=== PATIENT | female | born 1960 | race Caucasian/White ===

== ENCOUNTER 2021-11-05 19:22 | Inpatient (IN) | payer MEDICARE ==
[~2021-11-05] VITALS: Ht 157.5 cm; Wt 65.8 kg
[2021-11-05 20:04] LABS: BASOPHILS % (AUTO) 0.3 % (0.0-5.0); HEMATOCRIT 36.8 % (36-48); LYMPHOCYTES % (AUTO) 18.2 % (21.0-51.0); MEAN CORPUSCULAR HEMOGLOBIN 26.6 pg (27.0-33.0); MEAN CORPUSCULAR HGB CONC 32.6 g/dL (32.0-36.0); MEAN CORPUSCULAR VOLUME 81.6 fL (79-99); MONOCYTES % (AUTO) 9.8 % (3.0-13.0); NEUTROPHILS % (AUTO) 70.1 % (40.0-77.0); PLATELET COUNT (AUTO) 192 K/uL (130-400); RED BLOOD CELL COUNT(AUTO) 4.51 MIL/uL (4.00-5.50); RED CELL DISTRIBUTION WIDTH 15.7 % (11.0-15.5)
[2021-11-05 20:17] LABS: INR 1.06 (0.85-1.15); PROTHROMBIN TIME 11.5 SEC (9.6-11.6)
[2021-11-05 20:19] LABS: PARTIAL THROMBOPLASTIN TIME 29.5 SEC (26.3-35.5)
[2021-11-05 20:20] LABS: CREATININE 2.2 mg/dL (0.5-1.5); POTASSIUM 3.3 mmol/L (3.5-5.1)
[2021-11-05 20:29] LABS: ALBUMIN 3.7 g/dL (3.5-5.0); BILIRUBIN,TOTAL 0.6 mg/dL (0.2-1.0); MAGNESIUM 1.4 mg/dL (1.80-2.40); TOTAL PROTEIN, SERUM 7.8 g/dL (6.0-8.3)
[2021-11-05] MEDS ORDERED: CEFTRIAXONE 1G VIAL IVP ONE (21:00)
[2021-11-05] MEDS ORDERED: ONDANSETRON 4MG INJ IVP ONE (21:00)
[2021-11-05] MEDS ORDERED: POTASSIUM BICARB/CIT AC 25 MEQ TABLET.EFF PO ONE (21:00)
[2021-11-05] MEDS ORDERED: ACETAMINOPHEN 500 MG TABLET PO ONE (21:00)
[2021-11-05 21:11] LABS: APPEARANCE,URINE Turbid (CLEAR); BILIRUBIN,URINE Negative (NEGATIVE); COLOR,URINE Yellow (YELLOW); GLUCOSE, URINE (UA) Negative (NEGATIVE); KETONES,URINE Trace mg/dL (NEGATIVE); LEUKOCYTE ESTERASE ,URINE Large (NEGATIVE); NITRATE,URINE Negative (NEGATIVE); OCCULT BLOOD,URINE Large (NEGATIVE); PROTEIN,URINE 300 mg/dL (NEGATIVE)
[2021-11-05 21:21] LABS: BACTERIA,URINE Many /HPF (None Seen); SQUAMOUS EPITHELIAL CELL,UR Rare /HPF (0-2); WBC,URINE 26-50 /HPF (0-1)
[2021-11-05 21:22] LABS: MUCUS,URINE None Seen LPF (None Seen)
[2021-11-05] MEDS ORDERED: METRONIDAZOLE 500 MG TABLET PO SCH (21:30)
[2021-11-05] MEDS ORDERED: ONDANSETRON 4MG INJ IVP PRN (22:00)
[2021-11-05] MEDS ORDERED: ACETAMINOPHEN 325 MG TAB PO PRN (22:00)
[2021-11-05] MEDS ORDERED: POTASSIUM CHLORIDE 10MEQ/100ML 100 ML IV PRN (22:00)
[2021-11-05] MEDS ORDERED: LIDOCAINE HCL-MPF 1% 2ML VIAL IV PRN (22:00)
[2021-11-05] MEDS: METRONIDAZOLE 500MG/100ML BAG 100 ML IVPB SCH (22:00)
[2021-11-05] MEDS ORDERED: MAGNESIUM 2GM PREMIX 50ML 50 ML IV PRN (22:00)
[2021-11-05] MEDS ORDERED: POTASSIUM CHLORIDE 10% ELIXIR 20 MEQ/15 ML UDCUP PO PRN (22:00)
[2021-11-05] MEDS ORDERED: PRED10TA3 PO (22:14)
[2021-11-05] MEDS ORDERED: SIMV-43 PO (22:14)
[2021-11-05] MEDS ORDERED: MELA10TA7 PO (22:14)
[2021-11-05] MEDS ORDERED: DULOXETINE DR PO (22:14)
[2021-11-05] MEDS ORDERED: [UNRECOGNIZED DRUG - CODE] PO (22:14)
[2021-11-05] MEDS ORDERED: TACR1TAB PO (22:14)
[2021-11-05] MEDS ORDERED: APIX2.5T PO (22:14)
[2021-11-05] MEDS ORDERED: MYCO360T3 PO (22:14)
[2021-11-05] MEDS ORDERED: TIZA-211 PO (22:14)
[2021-11-05] MEDS: ZOSYN 3.375GM +NS 50ML IV SCH (22:34)
[2021-11-06 00:10] VITALS: BP 145/60
[2021-11-06] MEDS ORDERED: TACROLIMUS 3 MG PO SCH (01:30)
[2021-11-06] MEDS: KCL 20 MEQ ERTAB PO PRN ×2 (01:54→03:38)
[2021-11-06 04:13] VITALS: BP 90/35
[2021-11-06] MEDS: METRONIDAZOLE 500MG/100ML BAG 100 ML IVPB SCH ×3 (05:00→20:52)
[2021-11-06 06:27] LABS: MAGNESIUM 2.9 mg/dL (1.80-2.40); POTASSIUM 4.7 mmol/L (3.5-5.1)
[2021-11-06 08:00] VITALS: BP 81/36
[2021-11-06] MEDS: FAMOTIDINE 20MG VIAL IV SCH (08:58)
[2021-11-06] MEDS: DULOXETINE HCL 30 MG CAP PO SCH (08:59)
[2021-11-06] MEDS: PREDNISONE 10 MG TABLET PO SCH (08:59)
[2021-11-06] MEDS ORDERED: ENOXAPARIN SODIUM 30 MG/0.3 ML SQ SCH (09:00)
[2021-11-06] MEDS ORDERED: APIXABAN 2.5 MG TABLET PO SCH (09:00)
[2021-11-06 09:52] LABS: ALBUMIN 3.2 g/dL (3.5-5.0); BILIRUBIN,TOTAL 0.4 mg/dL (0.2-1.0); CREATININE 2.8 mg/dL (0.5-1.5); TOTAL PROTEIN, SERUM 7.1 g/dL (6.0-8.3)
[2021-11-06] MEDS: MYCOPHENOLATE SODIUM 180 MG TABLET.DR PO SCH ×2 (10:02→20:11)
[2021-11-06] MEDS: ZOSYN 3.375GM +NS 50ML IV SCH ×2 (10:02→21:51)
[2021-11-06] MEDS: LACTATED RINGERS 1000ML 1,000 ML IV SCH ×2 (10:56→21:52)
[2021-11-06 12:00] VITALS: BP 108/52
[2021-11-06 14:26] LABS: CHLORIDE,URINE RANDOM 61 mmol/L (110-250); CREATININE,URINE RANDOM 299 mg/dL (30-135); POTASSIUM,URINE RANDOM 23 mmol/L (25-125); SODIUM,URINE RANDOM 67 mmol/l (40-220)
[2021-11-06 15:25] LABS: APPEARANCE,URINE Cloudy (CLEAR); BILIRUBIN,URINE Negative (NEGATIVE); COLOR,URINE Yellow (YELLOW); GLUCOSE, URINE (UA) Negative (NEGATIVE); KETONES,URINE Trace mg/dL (NEGATIVE); LEUKOCYTE ESTERASE ,URINE Large (NEGATIVE); NITRATE,URINE Negative (NEGATIVE); OCCULT BLOOD,URINE Moderate (NEGATIVE); PROTEIN,URINE POS 1+ mg/dL (NEGATIVE); UROBILINOGEN,URINE 0.2 mg/dL (0.2-1.0)
[2021-11-06 15:35] LABS: BACTERIA,URINE Few /HPF (None Seen); MUCUS,URINE Rare LPF (None Seen); SQUAMOUS EPITHELIAL CELL,UR Few /HPF (0-2)
[2021-11-06 16:00] VITALS: BP 149/74
[2021-11-06 20:00] VITALS: BP 152/67
[2021-11-06] MEDS: SIMVASTATIN 20 MG TABLET PO SCH (20:11)
[2021-11-07] VITALS: BP 128/69
[2021-11-07 04:00] VITALS: BP 138/57
[2021-11-07 05:37] LABS: HEMATOCRIT 31.1 % (36-48); MEAN CORPUSCULAR HEMOGLOBIN 25.5 pg (27.0-33.0); MEAN CORPUSCULAR HGB CONC 30.9 g/dL (32.0-36.0); MEAN CORPUSCULAR VOLUME 82.7 fL (79-99); RED BLOOD CELL COUNT(AUTO) 3.76 MIL/uL (4.00-5.50); RED CELL DISTRIBUTION WIDTH 15.5 % (11.0-15.5); WHITE BLOOD COUNT (AUTO) 6.4 K/uL (4.8-10.8)
[2021-11-07 06:03] LABS: MAGNESIUM 2.1 mg/dL (1.80-2.40); PHOSPHORUS 2.8 mg/dL (2.5-4.9); THYROID STIMULATING HORMONE 0.79 uIU/mL (0.36-3.74); URIC ACID 7.6 mg/dL (2.6-7.2)
[2021-11-07] MEDS: METRONIDAZOLE 500MG/100ML BAG 100 ML IVPB SCH ×3 (06:25→22:37)
[2021-11-07 07:11] LABS: ALBUMIN 2.9 g/dL (3.5-5.0); BILIRUBIN,TOTAL 0.4 mg/dL (0.2-1.0); CREATININE 2.5 mg/dL (0.5-1.5); TOTAL PROTEIN, SERUM 6.3 g/dL (6.0-8.3)
[2021-11-07 08:00] VITALS: BP 124/57
[2021-11-07] MEDS: DULOXETINE HCL 30 MG CAP PO SCH (09:26)
[2021-11-07] MEDS: Vitamin B Complex/Vit C/Folic Acid PO SCH (09:26)
[2021-11-07] MEDS: FAMOTIDINE 20MG VIAL IV SCH (09:26)
[2021-11-07] MEDS: PREDNISONE 10 MG TABLET PO SCH (09:26)
[2021-11-07] MEDS: MYCOPHENOLATE SODIUM 180 MG TABLET.DR PO SCH ×2 (09:27→20:06)
[2021-11-07] MEDS: ZOSYN 3.375GM +NS 50ML IV SCH (10:35)
[2021-11-07 12:00] VITALS: BP 138/66
[2021-11-07 16:00] VITALS: BP 134/60
[2021-11-07 20:00] VITALS: BP 154/53
[2021-11-07] MEDS: SIMVASTATIN 20 MG TABLET PO SCH (20:07)
[2021-11-07] MEDS: CEPHALEXIN 500 MG CAPSULE PO SCH (20:07)
[2021-11-07] MEDS: GUAIFENESIN-DM 200/20 MG 10 ML PO PRN (20:07)
[2021-11-08] VITALS: BP 157/47
[2021-11-08] MEDS: LACTATED RINGERS 1000ML 1,000 ML IV SCH (02:42)
[2021-11-08 04:00] VITALS: BP 152/72
[2021-11-08] MEDS: METRONIDAZOLE 500MG/100ML BAG 100 ML IVPB SCH ×2 (06:03→14:21)
[2021-11-08 08:00] VITALS: BP 108/41
[2021-11-08] MEDS: GUAIFENESIN-DM 200/20 MG 10 ML PO PRN (11:03)
[2021-11-08] MEDS: MYCOPHENOLATE SODIUM 180 MG TABLET.DR PO SCH (11:04)
[2021-11-08] MEDS: DULOXETINE HCL 30 MG CAP PO SCH (11:05)
[2021-11-08] MEDS: Vitamin B Complex/Vit C/Folic Acid PO SCH (11:05)
[2021-11-08] MEDS: PREDNISONE 10 MG TABLET PO SCH (11:06)
[2021-11-08] MEDS: FAMOTIDINE 20MG VIAL IV SCH (11:07)
[2021-11-08] MEDS: CEPHALEXIN 500 MG CAPSULE PO SCH (11:07)
[2021-11-08 13:02] VITALS: BP 148/66
[2021-11-08] MEDS ORDERED: CEPH250C2 PO (15:04)
[2021-11-08] MEDS ORDERED: METR-172 PO (15:04)
[2021-11-08 16:00] VITALS: BP 108/63
== END 2021-11-08 16:40 | disposition home or self-care (01) | DRG 698 ==
LOC: EDH 19:22 → EDHIP 21:46 → 3CH 23:20
PROVIDERS: ADMIT Internal Medicine; ATTEND Internal Medicine
DX: T86.19 Other complication of kidney transplant (principal); A41.9 Sepsis, unspecified organism; E87.1 Hypo-osmolality and hyponatremia; D84.9 Immunodeficiency, unspecified; N13.6 Pyonephrosis; N17.9 Acute kidney failure, unspecified; R65.10 Systemic inflammatory response syndrome (SIRS) of non-infectious origin without acute organ dysfunction; K52.9 Noninfective gastroenteritis and colitis, unspecified; T86.13 Kidney transplant infection; E86.0 Dehydration; K80.20 Calculus of gallbladder without cholecystitis without obstruction; Z90.710 Acquired absence of both cervix and uterus; E83.42 Hypomagnesemia; E87.6 Hypokalemia; B96.1 Klebsiella pneumoniae [K. pneumoniae] as the cause of diseases classified elsewhere; R53.81 Other malaise; Z94.0 Kidney transplant status; Y83.8 Other surgical procedures as the cause of abnormal reaction of the patient, or of later complication, without mention of misadventure at the time of the procedure
CPT/HCPCS: 36415; 71045; 74176; 80053; 80197; 81001; 82436; 82570; 83605; 83690; 83735; 84100; 84133; 84145; 84300; 84443; 84484; 84550; 85025; 85027; 85610; 85730; 87015; 87040; 87077; 87088; 87177; 87186; 87324; 87507; 87804; 93005; G0378; J0696; J2405; J2543; J3475; J3490; J7120; J7512